=== PATIENT | female | born 1945 | race Caucasian/White ===

== ENCOUNTER 2016-05-09 08:00 | Outpatient (CLI) | payer MEDICARE, BC | END 2016-05-09 23:59 | disposition home or self-care (01) | LOC: CANPRECLI → D.MAMMO 08:00 | DX: Z12.31 Encounter for screening mammogram for malignant neoplasm of breast (principal) ==

== ENCOUNTER → 2017-06-05 16:18 | Outpatient (CLI) | payer MEDICARE, BC | END | disposition home or self-care (01) | LOC: D.MAMMO 05-11 09:30 | DX: Z12.31 Encounter for screening mammogram for malignant neoplasm of breast (principal) ==

== ENCOUNTER → 2017-07-10 19:25 | Outpatient (CLI) | payer MEDICARE, BC | END | disposition home or self-care (01) | LOC: D.MAMMO 09:00 | DX: R92.0 Mammographic microcalcification found on diagnostic imaging of breast (principal) ==

== ENCOUNTER 2018-01-11 08:00 | Outpatient (CLI) | payer MEDICARE, BC | END 2018-01-11 08:01 | disposition home or self-care (01) | LOC: D.MAMMO 08:00 | DX: R92.8 Other abnormal and inconclusive findings on diagnostic imaging of breast (principal) ==

== ENCOUNTER 2018-01-25 19:00 | Outpatient (CLI) | payer MEDICARE, BC | END 2018-01-25 23:59 | disposition home or self-care (01) | LOC: D.MAMMO 19:00 | DX: R92.8 Other abnormal and inconclusive findings on diagnostic imaging of breast (principal) ==

== ENCOUNTER → 2018-06-14 08:00 | Outpatient (CLI) | payer MEDICARE, BC | END | disposition home or self-care (01) | LOC: D.MAMMO 08:00 | DX: R92.8 Other abnormal and inconclusive findings on diagnostic imaging of breast (principal) ==

== ENCOUNTER 2018-10-25 14:15 | Emergency (ER) | payer MEDICARE, BC ==
[~2018-10-25] VITALS: Ht 152.4 cm; Wt 56.4 kg
[2018-10-25 14:25] VITALS: Ht 152.4 cm; Wt 56.4 kg
[2018-10-25] MEDS ORDERED: LIPITOR10 MG PO (14:27)
[2018-10-25] MEDS ORDERED: VOLTAREN75 MG PO (15:43)
[2018-10-25 16:01] VITALS: BP 126/67
== END 2018-10-25 16:25 | disposition home or self-care (01) ==
LOC: D.ER 14:15
DX: S00.83XA Contusion of other part of head, initial encounter (principal); W18.30XA Fall on same level, unspecified, initial encounter; Y93.89 Activity, other specified; Y92.511 Restaurant or cafe as the place of occurrence of the external cause

== ENCOUNTER → 2019-06-20 10:00 | Outpatient (CLI) | payer MEDICARE, BC ==
[2018-10-25 14:25] VITALS: BMI 24.2
[~2019-06-20 10:00] MED LIST: LIPITOR10 MG PO; VOLTAREN75 MG PO
== END | disposition home or self-care (01) ==
LOC: D.MAMMO 09:30
PROVIDERS: ATTEND Family Medicine
DX: Z12.31 Encounter for screening mammogram for malignant neoplasm of breast (principal)

== ENCOUNTER → 2020-06-21 23:47 | Outpatient (CLI) | payer MEDICARE, BC ==
[2018-10-25 14:25] VITALS: BMI 24.2
== END | disposition home or self-care (01) ==
LOC: D.MAMMO 10:30
PROVIDERS: ATTEND Family Medicine
DX: Z12.31 Encounter for screening mammogram for malignant neoplasm of breast (principal)